=== PATIENT | female | born 1960 | race Caucasian/White ===

== ENCOUNTER 2018-05-22 12:00 | Day surgery (SDC) | payer OTHER ==
[~2018-05-22] VITALS: Ht 157.5 cm; Wt 81.6 kg
[2018-05-22] MEDS ORDERED: PROMETRIUM200 MG PO (14:40)
[2018-05-22] MEDS ORDERED: SYNTHROID150 MCG PO (14:40)
--- NOTE | 2018-05-22 14:41 | NUR ---
PACIENTE AL MOMENTO ESTABLE, ALERTA Y ORIENTADA X3 REFIERE CHRISSY ESTADO EN [facility] LA CUAL LE REALIZARON SEVERINO RADIOGRAFIA EN BRAZO LT, ESTA REFIERE QUE TIENE SEVERINO FRACTURA DESPLAZADA EN DICHA AREA, ESTA INDICA QUE DR. VALDES ESTA ESPERANDO PACIENTE PARA SER OPERADA MANANA EN LA MANANA, SE PASA A AREA DE OBSERVACION Y SE CONTINUA MONITOREANDO POR CAMBIOS.
--- NOTE | 2018-05-22 16:50 | NUR ---
SE RECIBE A MONTSERRAT DE EMERGENCIAS AREA DE OBSERVACION,PTE FEMENIAN DE 57 YRS,PTE ALERTA X 3, EN PRUDENCE CON BARANDAS ELEVADAS POR ALANIZ SEGURIDAD,DR WHITFIELD EVALUA Y ORDENA IVF'S CON MEDICAMENTOS Y LABORATORIOS. PTE VIENE CON H/L DESDE JAGUAR.
[2018-05-23] MEDS ORDERED: ALEVE220 M1 PO (12:01)
[2018-05-23] MEDS ORDERED: PERCOCET 5-3251 EACH PO (12:01)
[2018-05-23] MEDS ORDERED: CEFADROXIL500 MG PO (12:01)
== END 2018-05-23 20:00 | disposition home or self-care (01) ==
LOC: CIR.AMB 12:00 → ER 13:53 → SURG 17:55 → O/R 17:55 → EDSTATUS 05-23 07:00 → O/R 05-23 16:00 → SURG 05-23 16:00 → CIR.AMB 05-23 20:00
DX: S52.532A Colles' fracture of left radius, initial encounter for closed fracture (principal); S52.692A Other fracture of lower end of left ulna, initial encounter for closed fracture; E03.8 Other specified hypothyroidism; M81.0 Age-related osteoporosis without current pathological fracture